=== PATIENT | female | born 1925 | race Caucasian/White ===

== ENCOUNTER 2017-03-23 19:26 | Inpatient (IN) | payer MEDICARE, OTHER ==
[2017-03-23 19:57] LABS: ADD MAN DIFF? NO
[2017-03-23 20:01] LABS: BILIRUBIN,URINE NEGATIVE (NEG); CLARITY,URINE CLEAR; COLOR,URINE YELLOW; GLUCOSE,URINE NEGATIVE (NEG); NITRITE,URINE NEGATIVE (NEG); PH,URINE 6.5; PROTEIN,URINE NEGATIVE (NEG-TRACE); UROBILINOGEN,URINE 0.2 mg/dL (0.2 mg/dL)
[2017-03-23 20:02] LABS: BASO # 0.1 x10^3/uL (0.0-0.2); BASO % 1 % (0-3); EOS % 0 % (0-3); HEMATOCRIT 40.5 % (36.0-47.0); HEMOGLOBIN 13.1 g/dL (12.0-15.5); LYMPH % 33 % (24-48); MEAN CORPUSCULAR HEMOGLOBIN 30 pg (25-35); MEAN CORPUSCULAR HGB CONC 33 g/dL (31-37); MEAN CORPUSCULAR VOLUME 91 fL (79-100); MONO # 1.5 x10^3/uL (0.0-1.1); MONO % 12 % (0-9); NEUT # 6.4 x10^3uL (1.8-7.7); NEUT % 54 % (31-73); PLATELET COUNT 343 x10^3/uL (140-400); RED BLOOD COUNT 4.42 x10^6/uL (3.50-5.40); RED CELL DISTRIBUTION WIDTH 13.5 % (11.5-14.5); WHITE BLOOD COUNT 11.9 x10^3/uL (4.0-11.0)
[2017-03-23 20:08] LABS: BACTERIA,URINE 0 /HPF (0-FEW); RBC,URINE RARE /HPF (0-2); SQUAMOUS EPITHELIAL CELL,UR FEW /LPF
[2017-03-23 20:13] LABS: ANION GAP 9 (6-14); BLOOD UREA NITROGEN 20 mg/dL (7-20); CALCIUM 10.7 mg/dL (8.5-10.1); CARBON DIOXIDE 32 mmol/L (21-32); CHLORIDE 97 mmol/L (98-107); CREATININE 1.4 mg/dL (0.6-1.0); GFR 35.4; GLUCOSE 124 mg/dL (70-99); POTASSIUM 3.2 mmol/L (3.5-5.1); SODIUM 138 mmol/L (136-145)
[2017-03-23 20:19] LABS: ALBUMIN 4.1 g/dL (3.4-5.0); ALK PHOS 98 U/L (46-116); ALT (SGPT) 26 U/L (14-59); AST (SGOT) 29 U/L (15-37); DIRECT BILIRUBIN 0.1 mg/dL (0.0-0.2); LIPASE 505 U/L (73-393); TOTAL BILIRUBIN 0.3 mg/dL (0.2-1.0); TOTAL PROTEIN 7.4 g/dL (6.4-8.2)
[2017-03-23 20:23] LABS: LACTIC ACID 1.1 mmol/L (0.4-2.0)
[2017-03-23 20:25] LABS: NT-PRO BNP 319 pg/mL (0-449)
[2017-03-23 20:29] LABS: TROPONINI 0.123 ng/mL (0.000-0.055)
[2017-03-23] MEDS ORDERED: ONDANSETRON PF 4 MG/2 ML VIAL. IV (21:00)
[2017-03-23] MEDS ORDERED: MORPHINE SULFATE 2 MG/ML DISP.SYRIN. IV (21:00)
[2017-03-23] MEDS: PIPERACILLIN/TAZOBACTAM 3.375 GM in IV NORMAL SALINE 50ML 50 ML IV (21:21)
[2017-03-23] MEDS: LABETALOL 20 MG/4 ML DISP.SYRIN. IVP (21:21)
[2017-03-23] MEDS: POTASSIUM CHLORIDE 20 MEQ TABLET.ER. PO (21:21)
[2017-03-23] MEDS: ASPIRIN CHEWABLE 81 MG TABLET. PO (22:25)
[2017-03-23] MEDS: VANCOMYCIN 1.5 GM in IV DEXTROSE 5 %-0.45 % NACL 500 ML IV (23:44)
[2017-03-23] MEDS: VANCOMYCIN PER PHARMACY MC (23:55)
[2017-03-24 01:36] LABS: TROPONINI 0.124 ng/mL (0.000-0.055)
[2017-03-24 03:51] LABS: ADD MAN DIFF? NO
[2017-03-24 03:57] LABS: BASO # 0.1 x10^3/uL (0.0-0.2); BASO % 1 % (0-3); EOS % 0 % (0-3); HEMATOCRIT 38.5 % (36.0-47.0); HEMOGLOBIN 12.8 g/dL (12.0-15.5); LYMPH # 1.9 x10^3/uL (1.0-4.8); LYMPH % 15 % (24-48); MEAN CORPUSCULAR HEMOGLOBIN 30 pg (25-35); MEAN CORPUSCULAR HGB CONC 33 g/dL (31-37); MEAN CORPUSCULAR VOLUME 92 fL (79-100); MONO # 1.1 x10^3/uL (0.0-1.1); MONO % 9 % (0-9); NEUT % 76 % (31-73); PLATELET COUNT 310 x10^3/uL (140-400); RED BLOOD COUNT 4.21 x10^6/uL (3.50-5.40); RED CELL DISTRIBUTION WIDTH 13.7 % (11.5-14.5); WHITE BLOOD COUNT 13.1 x10^3/uL (4.0-11.0)
[2017-03-24 04:17] LABS: ANION GAP 8 (6-14); BLOOD UREA NITROGEN 16 mg/dL (7-20); CALCIUM 9.9 mg/dL (8.5-10.1); CARBON DIOXIDE 32 mmol/L (21-32); CHLORIDE 100 mmol/L (98-107); CREATININE 1.3 mg/dL (0.6-1.0); GFR 38.6; GLUCOSE 160 mg/dL (70-99); SODIUM 140 mmol/L (136-145)
[2017-03-24 04:24] LABS: TROPONINI 0.126 ng/mL (0.000-0.055)
[2017-03-24 04:33] LABS: POTASSIUM 2.6 mmol/L (3.5-5.1)
[2017-03-24 05:00] LABS: MAGNESIUM 2.1 mg/dL (1.8-2.4)
[2017-03-24] MEDS: POTASSIUM CHLORIDE 20 MEQ TABLET.ER. PO ×3 (05:06→10:28)
[2017-03-24] MEDS: LABETALOL 20 MG/4 ML DISP.SYRIN. IVP (08:21)
[2017-03-24 10:10] LABS: CHOLESTEROL 162 mg/dL (0-200); HDLC 76 mg/dL (40-60); LDLC 70 mg/dL (0-100); NON-HDL CHOLESTEROL 86 mg/dL (0-129); TRIGLYCERIDES 82 mg/dL (0-150); VLDLC 16 mg/dL (0-40)
[2017-03-24 10:11] LABS: CHOLESTEROL/HDL RATIO 2.1
[2017-03-24] MEDS: METOPROLOL SUCC 24HR ER 25 MG TAB.ER.24H. PO (10:27)
[2017-03-24] MEDS: ASPIRIN ENTERIC COATED 81 MG TABLET.DR. PO (10:28)
[2017-03-24] MEDS: amLODIPine BESYLATE 10 MG TABLET PO (10:28)
[2017-03-24] MEDS: LOSARTAN POTASSIUM 50 MG TABLET. PO (10:29)
[2017-03-24] MEDS: cefTRIAXone IV Push 1 GM VIAL. IVP (17:30)
[2017-03-25 06:44] LABS: ANION GAP 8 (6-14); BLOOD UREA NITROGEN 22 mg/dL (7-20); CALCIUM 10.2 mg/dL (8.5-10.1); CARBON DIOXIDE 27 mmol/L (21-32); CHLORIDE 106 mmol/L (98-107); CREATININE 1.2 mg/dL (0.6-1.0); GFR 42.3; GLUCOSE 112 mg/dL (70-99); MAGNESIUM 2.2 mg/dL (1.8-2.4); SODIUM 141 mmol/L (136-145)
[2017-03-25 07:01] LABS: THYROID STIM HORMONE (TSH) 1.604 uIU/mL (0.358-3.74)
[2017-03-25 08:19] LABS: VITAMIN-B12 316 pg/mL (247-911)
[2017-03-25] MEDS: LOSARTAN POTASSIUM 50 MG TABLET. PO (08:20)
[2017-03-25] MEDS: ASPIRIN ENTERIC COATED 81 MG TABLET.DR. PO (08:26)
[2017-03-25] MEDS: amLODIPine BESYLATE 10 MG TABLET PO (08:26)
[2017-03-25] MEDS: POTASSIUM CHLORIDE 20 MEQ TABLET.ER. PO (08:27)
[2017-03-25] MEDS: METOPROLOL SUCC 24HR ER 25 MG TAB.ER.24H. PO (08:28)
[2017-03-25 08:46] LABS: SEDIMENTATION RATE 12 (0-25)
[2017-03-25] MEDS: LABETALOL 20 MG/4 ML DISP.SYRIN. IVP (12:05)
[2017-03-25] MEDS ORDERED: CARVEDILOL 3.125 MG TABLET. PO (13:30)
[2017-03-25] MEDS ORDERED: CARVEDILOL 6.25 MG TABLET. PO (17:00)
[2017-03-25] MEDS ORDERED: VANCOMYCIN 1 GM in IV 1/2 NORMAL SALINE 250 ML IV (23:30)
== END 2017-03-25 13:45 | disposition home health service (06) | DRG 871 ==
LOC: ER 19:26 → 2 SOUTH 22:09
DX: A41.9 Sepsis, unspecified organism (principal); G93.41 Metabolic encephalopathy; I21.A1 Myocardial infarction type 2; I13.0 Hypertensive heart and chronic kidney disease with heart failure and stage 1 through stage 4 chronic kidney disease, or unspecified chronic kidney disease; N39.0 Urinary tract infection, site not specified; I50.32 Chronic diastolic (congestive) heart failure; E11.22 Type 2 diabetes mellitus with diabetic chronic kidney disease; N18.3 Chronic kidney disease, stage 3 (moderate); E03.9 Hypothyroidism, unspecified; E78.5 Hyperlipidemia, unspecified; E87.6 Hypokalemia; F03.90 Unspecified dementia, unspecified severity, without behavioral disturbance, psychotic disturbance, mood disturbance, and anxiety; F43.10 Post-traumatic stress disorder, unspecified; H91.90 Unspecified hearing loss, unspecified ear; I25.10 Atherosclerotic heart disease of native coronary artery without angina pectoris; I44.0 Atrioventricular block, first degree; F41.9 Anxiety disorder, unspecified; E11.42 Type 2 diabetes mellitus with diabetic polyneuropathy; M19.90 Unspecified osteoarthritis, unspecified site; I48.0 Paroxysmal atrial fibrillation; J45.909 Unspecified asthma, uncomplicated; K21.9 Gastro-esophageal reflux disease without esophagitis; Z90.710 Acquired absence of both cervix and uterus; Z79.4 Long term (current) use of insulin; Z95.0 Presence of cardiac pacemaker; Z90.49 Acquired absence of other specified parts of digestive tract
CPT/HCPCS: 36415; 70450; 71045; 80048; 80061; 80076; 81001; 82607; 82746; 83605; 83690; 83735; 83880; 84443; 84484; 85025; 85651; 87086; 92610-GN; 93005; 93306; 96365; 96375; 97161-GP; 97165-GO; 99291-25; J0696; J2543; J3370; J3490